=== PATIENT | female | born 2000 | race Two or more races ===

== ENCOUNTER → 2024-12-25 | Emergency (ER) | payer OTHER ==
[~2024-12-25] VITALS: Ht 167.6 cm; Wt 58.1 kg
[~2024-12-25] MED LIST: KETOROLAC TROMETHAMINE 30 MG VIAL IM STA; KETOROLAC TROMETHAMINE 30 MG VIAL ONE
[2024-12-25 21:57] LABS: BASO % 0.5 % (0.1-1.2); EOS # 0.15 (0.04-0.54); EOS % 1.7 % (0.7-7.0); HEMATOCRIT 37.6 % (34.1-44.9); HEMOGLOBIN 11.8 g/dL (11.2-15.7); LYMPH # 2.24 (1.18-3.74); LYMPH % 25.7 % (19.3-53.1); MEAN CORPUSCULAR HEMOGLOBIN 21.2 pg (25.6-32.2); MONO # 0.71 (0.24-0.82); MONO % 8.2 % (4.7-12.5); NEUT # 5.53 (1.56-6.13); NEUT % 63.6 % (34.0-71.1); PLATELET COUNT 232 K/uL (163-369); RED BLOOD COUNT 5.57 M/uL (3.93-5.22)
[2024-12-25 22:17] LABS: COVID-19 AG NEGATIVE (NEGATIVE)
[2024-12-25 22:24] LABS: INFLUENZA A AG NEGATIVE (NEGATIVE); INFLUENZA B AG NEGATIVE (NEGATIVE)
== END | disposition home or self-care (01) ==
LOC: ER 19:05
PROVIDERS: General Practice
DX: J06.9 Acute upper respiratory infection, unspecified (principal); Z20.822 Contact with and (suspected) exposure to COVID-19